=== PATIENT | male | born 1970 | race American Indian/Alaskan Native ===

== ENCOUNTER 2017-07-26 01:13 | Emergency (ER) | payer BC ==
[2017-07-26] MEDS ORDERED: MORPHINE IM ONE (01:35)
[2017-07-26] MEDS ORDERED: BOOSTRIX IM ONE (01:35)
[2017-07-26] MEDS ORDERED: MORPHINE ONE (01:38)
[2017-07-26] MEDS ORDERED: ZOFRAN ODT PO ONE (02:11)
[2017-07-26] MEDS ORDERED: NORCO 10/325 PO ONE (02:11)
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
[2017-07-26] MEDS ORDERED: MOTRIN PO ONE (03:05)
[2017-07-26] MEDS ORDERED: THERMAZENE 50 GRAM TP ONE (03:11)
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
[2017-07-26 07:06] VITALS: BP 140/72
== END 2017-07-26 04:35 | disposition home or self-care (01) ==
LOC: ED 01:13
DX: T23.202A Burn of second degree of left hand, unspecified site, initial encounter (principal); F17.200 Nicotine dependence, unspecified, uncomplicated; X08.8XXA Exposure to other specified smoke, fire and flames, initial encounter; Y93.89 Activity, other specified; Y92.89 Other specified places as the place of occurrence of the external cause; Y99.8 Other external cause status
CPT/HCPCS: 16020; 73120; 90471; 90715; 96372; 99283; J2270; Q0162

== ENCOUNTER 2017-09-01 19:12 | Emergency (ER) | payer BC ==
[2017-09-01 19:35] VITALS: BP 137/86
[2017-09-01 22:29] LABS: Bacteria,Urine 1+ /HPF (Negative); Bilirubin,Urine NEG (Negative); Blood,Urine NEG (Negative); Color,Urine Yellow (Yellow); Nitrite,Urine NEG (Negative); Protein,Urine <15 mg/dL mg/dL (Negative); RBC,Urine < 1.0 /HPF (0.0-6.0); Urobilinogen,Urine < 2.0 mg/dL (<2.0); WBC,Urine < 1.0 /HPF (0.0-6.0)
[2017-09-02] MEDS ORDERED: ROCEPHIN IM ONE (00:59)
[2017-09-02] MEDS ORDERED: XYLOCAINE 1% MPF 5 mL INFILTRATI ONE (00:59)
[2017-09-02] MEDS ORDERED: ZITHROMAX PO ONE (00:59)
--- NOTE | 2017-09-02 01:03 | Emergency Department Report ---
ED Male HPI - General Chief complaint: Urogenital-Male Stated complaint: PAINFUL URINATION/STD Time Seen by Provider: 09/02/17 00:54 Source: patient Mode of arrival: Ambulatory Limitations: No Limitations - History of Present Illness Initial comments: This is a 47-year-old male nontoxic, well nourished in appearance, no acute signs of distress presents to the ED with c/o of pale discharge 1 week. Patient that he had unprotected sex 2 weeks ago which his girlfriend called and stated she is diagnosed with an STD exposure of chlamydia. Patient stated that he Then patient developed the symptoms. Patient denies any testicular pain, testicular swelling, dysuria, polyuria, hematuria, back pain, dental pain, chest pain, shortness of breath, headache, stiff neck, nausea or vomiting. Patient denies any drug allergies or significant past medical history. MD Complaint: penile discharge -: week(s) (1) Location: penis Radiation: none Severity scale (0 -10): 0 Improves with: none Worsens with: none discharge. denies: swelling, mass, rash, urinary retention, blood in urine, dysuria, fever, nausea/vomiting, incontinence - Related Data Sexually active: Yes Previous Rx's Medication Instructions Recorded Last Taken Type Promethazine [Phenergan] 25 mg PO Q6H PRN #10 tablet 01/22/14 Unknown Rx oxyCODONE /ACETAMINOPHEN [Percocet 1 tab PO Q6HR PRN #16 tablet 01/22/14 Unknown Rx 5/325] Ibuprofen [Motrin] 600 mg PO Q8H PRN #50 tablet 05/07/14 Unknown Rx Sulfamethoxazole/Trimethoprim 1 each PO BID #20 tablet 05/07/14 Unknown Rx [Bactrim Ds] Acetaminophen/Codeine [Tylenol 1 tab PO Q6H PRN #18 tab 07/26/17 Unknown Rx /Codeine # 3 tab] Cephalexin [Keflex] 500 mg PO Q12HR #14 cap 07/26/17 Unknown Rx Ibuprofen [Motrin] 800 mg PO Q8HR PRN #30 tablet 07/26/17 Unknown Rx Silver Sulfadiazine [Silvadene] 400 gm TP BID #1 cream..g. 07/26/17 Unknown Rx Allergies Allergy/AdvReac Type Severity Reaction Status Date / Time No Known Allergies Allergy Verified 02/07/18 19:33 ED Review of Systems ROS: Stated complaint: PAINFUL URINATION/STD Other details as noted in HPI Constitutional: denies: chills, fever Eyes: denies: eye pain, eye discharge, vision change ENT: denies: ear pain, throat pain Respiratory: denies: cough, shortness of breath, wheezing Cardiovascular: denies: chest pain, palpitations Endocrine: no symptoms reported Gastrointestinal: denies: abdominal pain, nausea, diarrhea Genitourinary: discharge. denies: urgency, dysuria Musculoskeletal: denies: back pain, joint swelling, arthralgia Skin: denies: rash, lesions Neurological: denies: headache, weakness, paresthesias Psychiatric: denies: anxiety, depression Hematological/Lymphatic: denies: easy bleeding, easy bruising ED Past Medical Hx - Past Medical History Previous Medical History?: No Additional medical history: GI bleed - Surgical History Hx Cholecystectomy: Yes - Social History Smoking Status: Never Smoker Substance Use Type: Alcohol, Marijuana - Medications Home Medications: Home Medications Medication Instructions Recorded Confirmed Last Taken Type Promethazine [Phenergan] 25 mg PO Q6H PRN #10 tablet 01/22/14 Unknown Rx oxyCODONE /ACETAMINOPHEN [Percocet 1 tab PO Q6HR PRN #16 tablet 01/22/14 Unknown Rx 5/325] Ibuprofen [Motrin] 600 mg PO Q8H PRN #50 tablet 05/07/14 Unknown Rx Sulfamethoxazole/Trimethoprim 1 each PO BID #20 tablet 05/07/14 Unknown Rx [Bactrim Ds] Acetaminophen/Codeine [Tylenol 1 tab PO Q6H PRN #18 tab 07/26/17 Unknown Rx /Codeine # 3 tab] Cephalexin [Keflex] 500 mg PO Q12HR #14 cap 07/26/17 Unknown Rx Ibuprofen [Motrin] 800 mg PO Q8HR PRN #30 tablet 07/26/17 Unknown Rx Silver Sulfadiazine [Silvadene] 400 gm TP BID #1 cream..g. 07/26/17 Unknown Rx ED Physical Exam - General Limitations: No Limitations General appearance: alert, in no apparent distress - Head Head exam: Present: atraumatic, normocephalic - Eye Eye exam: Present: normal appearance - ENT ENT exam: Present: mucous membranes moist - Neck Neck exam: Present: normal inspection - Respiratory Respiratory exam: Present: normal lung sounds bilaterally. Absent: respiratory distress - Cardiovascular Cardiovascular Exam: Present: regular rate, normal rhythm. Absent: systolic murmur, diastolic murmur, rubs, gallop - GI/Abdominal GI/Abdominal exam: Present: soft, normal bowel sounds. Absent: distended, tenderness, guarding, rebound, rigid, diminished bowel sounds - Rectal Rectal exam: Present: deferred - exam: Present: normal inspection. Absent: testicular tenderness, urethral discharge, scrotal swelling, vertical testicular lie, circumcision External exam: Present: normal external exam. Absent: erythema, swelling, lesions, lacerations, ecchymosis, bleeding - Extremities Exam Extremities exam: Present: normal inspection, full ROM - Back Exam Back exam: Present: normal inspection, full ROM. Absent: tenderness, CVA tenderness (R), CVA tenderness (L), muscle spasm, paraspinal tenderness, vertebral tenderness, rash noted - Neurological Exam Neurological exam: Present: alert, oriented X3 - Psychiatric Psychiatric exam: Present: normal affect, normal mood - Skin Skin exam: Present: warm, dry, intact, normal color. Absent: rash ED Course Vital Signs 09/01/17 19:33 Temperature 98.1 F Pulse Rate 56 L Respiratory 16 Rate Blood Pressure 137/86 O2 Sat by Pulse 98 Oximetry - Reevaluation(s) Reevaluation #1: 09/02/17 01:01 Patient is speaking in full sentences with no signs of distress noted. ED Medical Decision Making - Medical Decision Making this is a 47-year-old male that presented possible STD exposures. Patient is stable and was examined by me. UA obtained and normal. Patient received Rocephin and azithromycin. Gonorrhea/chlamydia pending. Patient was instructed to return in 3 days to obtain results of gonorrhea or chlamydia. Patient was also instructed Follow-up with a primary care doctor in 3-5 days or if symptoms worsen and continue return to emergency room as soon as possible. At time of discharge, the patient does not seem toxic or ill in appearance. No acute signs of distress noted. Patient agrees to discharge treatment plan of care. No further questions noted by the patient. This chart is dictated with using [employer] Critical care attestation.: If time is entered above; I have spent that time in minutes in the direct care of this critically ill patient, excluding procedure time. ED Disposition Clinical Impression: Possible exposure to STD Disposition: DC-01 TO HOME OR SELFCARE Is pt being admited?: No Does the pt Need Aspirin: No Condition: Stable Instructions: Safe Sex (ED) Additional Instructions: Follow-up with a primary care doctor in 3-5 days or if symptoms worsen and continue return to emergency room as soon as possible. Return in 3 days for results of gonorrhea and chlamydia. Referrals: PRIMARY CAREMD [Primary Care Provider] - 3-5 Days SOLANGE CARRASQUILLO MD [Staff Physician] - 3-5 Days [facility] [Outside] - 3-5 Days [facility] [Outside] - 3-5 Days Forms: Work/School Release Form(ED)
== END 2017-09-02 01:40 | disposition home or self-care (01) ==
LOC: ED 19:12
DX: R36.9 Urethral discharge, unspecified (principal); F12.10 Cannabis abuse, uncomplicated
CPT/HCPCS: 81001; 87591; 96372; 99283; J0696

== ENCOUNTER 2019-02-08 21:31 | Emergency (ER) | payer SELFPAY ==
[2019-02-08] MEDS ORDERED: NACL 0.9% IR ONE (21:40)
[2019-02-08] MEDS ORDERED: BOOSTRIX IM ONE (21:40)
[2019-02-08] MEDS ORDERED: IBUPROFEN PO ONE (21:40)
--- NOTE | 2019-02-08 21:40 | Event Note ---
ED Screening Note ED Screening Note: lac r wrist did it at work on metal bleeding controlled n/v intact needs tdap This initial assessment/diagnostic orders/clinical plan/treatment(s) is/are subject to change based on patients health status, clinical progression and re- assessment by fellow clinical providers in the ED. Further treatment and workup at subsequent clinical providers discretion. Patient/guardian urged not to elope from the ED as their condition may be serious if not clinically assessed and managed. Initial orders include: lac care tdap
[2019-02-08 21:43] VITALS: BP 145/88
[2019-02-09] MEDS ORDERED: IBUPROFEN ONE
[2019-02-09] MEDS ORDERED: BOOSTRIX IM ONE (00:01)
--- NOTE | 2019-02-09 01:12 | Emergency Department Report ---
ED Laceration HPI - HPI Chief Complaint: Wound/Laceration Stated Complaint: RT FOREARM LACERATION Time Seen by Provider: 02/08/19 21:39 Occurred When: Yesterday Location: Upper Extremity (right wrist) Severity: mild Tetanus Status: Not up to Date Laceration Symptoms: Yes Pain, No Foreign Body Sensation, No Numbness, No Weakness Other History: This is a 48-year-old [place] male who presents with a laceration to right anterior wrist. Patient states he was there were and accidentally cut his right wrist with the metal frame while at work 4-5 hours prior to arrival. Patient can't remember his last tetanus vaccine. Past medical history GI bleed. Denies numbness or tingling, weakness, swelling, or brusing around area. ED Review of Systems ROS: Stated complaint: RT FOREARM LACERATION Other details as noted in HPI Constitutional: denies: chills, fever Respiratory: denies: cough, shortness of breath, wheezing Cardiovascular: denies: chest pain, palpitations Gastrointestinal: denies: abdominal pain, nausea, diarrhea Skin: lesions (laceration right wrist). denies: rash Neurological: denies: headache, weakness, paresthesias Psychiatric: denies: anxiety, depression ED Past Medical Hx - Past Medical History Previous Medical History?: Yes Additional medical history: GI bleed - Surgical History Past Surgical History?: Yes Hx Cholecystectomy: Yes - Social History Smoking Status: Never Smoker Substance Use Type: None - Medications Home Medications: Home Medications Medication Instructions Recorded Confirmed Last Taken Type Promethazine [Phenergan] 25 mg PO Q6H PRN #10 tablet 01/22/14 Unknown Rx oxyCODONE /ACETAMINOPHEN [Percocet 1 tab PO Q6HR PRN #16 tablet 01/22/14 Unknown Rx 5/325] Ibuprofen [Motrin] 600 mg PO Q8H PRN #50 tablet 05/07/14 Unknown Rx Sulfamethoxazole/Trimethoprim 1 each PO BID #20 tablet 05/07/14 Unknown Rx [Bactrim Ds] Acetaminophen/Codeine [Tylenol 1 tab PO Q6H PRN #18 tab 07/26/17 Unknown Rx /Codeine # 3 tab] Ibuprofen [Motrin] 800 mg PO Q8HR PRN #30 tablet 07/26/17 Unknown Rx Silver Sulfadiazine [Silvadene] 400 gm TP BID #1 cream..g. 07/26/17 Unknown Rx cephALEXin [Keflex] 500 mg PO Q12HR #14 cap 07/26/17 Unknown Rx cephALEXin [Keflex] 500 mg PO Q12HR #14 cap 02/09/19 Unknown Rx Laceration Physical Exam - Exam General: Vital signs noted. No distress. Alert and acting appropriately. Wound Length (cm): 3 Laceration Location: Upper Extremity Full Body Front + Back: 1 - 3 cm linear laceration into the epidermis, neurologically intact, no drainage, no facial tendons or ligaments, or surrounding cellulitis Laceration Exam: Yes Normal Distal CMS, No Foreign Body, No Exposed Tendon, Vessel, or Nerve, No Tendon Injury ED Course Vital Signs 02/08/19 21:39 Temperature 98.3 F Pulse Rate 71 Respiratory 16 Rate Blood Pressure 145/88 O2 Sat by Pulse 99 Oximetry - Laceration /Wound Repair Right Anterior Distal Wrist Wound Location: upper extremity Wound Length (cm): 3 Wound's Depth, Shape: superficial Wound Explored: clean Irrigated w/ Saline (ccs): 20 Betadine Prep?: Yes Anesthesia: 1% Lidocaine Volume Anesthetic (ccs): 2 Wound Repaired With: sutures Suture Size/Type: 4:0 Number of Sutures: 4 Layer Closure?: No Sterile Dressing Applied?: Yes ED Medical Decision Making - Medical Decision Making Patient examined by me. Vital stable. Patient is non-toxic appearing and stable. Patient given booster vaccine and ibuprofen while in the ER. Laceration repair performed, reviewed procedure note. Discharged home for outpatient treatment with Keflex. Discussed ER care plan with patient. Patient agreed with plan. F/U with PCP. Critical care attestation.: If time is entered above; I have spent that time in minutes in the direct care of this critically ill patient, excluding procedure time. ED Disposition Clinical Impression: Laceration of wrist Qualifiers: Encounter type: initial encounter Laterality: right Qualified Code(s): S61.511A - Laceration without foreign body of right wrist, initial encounter Disposition: TO HOME OR SELFCARE Is pt being admited?: No Does the pt Need Aspirin: No Condition: Stable Instructions: Suture Care (ED), Laceration (ED) Additional Instructions: Take antibiotics as prescribed for the full course. Keep wound dry and clean for 48 hours. Avoid putting to much tension on wound site. Prop arm up on pillows to decrease swelling. Follow up with Primary Care Provider in 2-3 days. Have sutures removed in 7-10 days by primary care provider or in ER. Return to ER if red, swollen, foul discharge, or fever. Prescriptions: cephALEXin [Keflex] 500 mg PO Q12HR #14 cap Referrals: EMILE CHIN MD [Primary Care Provider] - 3-5 Days RADHA BARNES MD [Staff Physician] - 3-5 Days [facility] [Provider Group] - 3-5 Days Forms: Work/School Release Form(ED) Time of Disposition: 02:17
== END 2019-02-09 02:20 | disposition home or self-care (01) ==
LOC: ED 21:31
DX: S61.511A Laceration without foreign body of right wrist, initial encounter (principal); Z90.49 Acquired absence of other specified parts of digestive tract; Z79.1 Long term (current) use of non-steroidal anti-inflammatories (NSAID); Z79.899 Other long term (current) drug therapy; W26.8XXA Contact with other sharp object(s), not elsewhere classified, initial encounter; Y93.89 Activity, other specified; Y92.69 Other specified industrial and construction area as the place of occurrence of the external cause; Y99.8 Other external cause status
CPT/HCPCS: 90471; 90715

== ENCOUNTER 2019-03-01 14:17 | Emergency (ER) | payer SELFPAY ==
[2019-03-01 15:07] VITALS: BP 129/69
--- NOTE | 2019-03-01 15:07 | Emergency Department Report ---
Blank Doc - Documentation Documentation: this is a 48-year-old male that presents with right eye pain with foreign body sensation. This initial assessment/diagnostic orders/clinical plan/treatment(s) is/are subject to change based on patient's health status, clinical progression and re- assessment by fellow clinical providers in the ED. Further treatment and workup at subsequent clinical providers discretion. Patient/guardians urged not to elope from the ED as their condition may be serious if not clinically assessed and managed. Initial orders include: 1- Patient sent to [facility] for further evaluation and treatment
[2019-03-01] MEDS ORDERED: ERYTHROMYCIN OPHTH OINT OU ONE (17:22)
[2019-03-01] MEDS ORDERED: TETRACAINE 0.5% OU ONE (17:22)
[2019-03-01] MEDS ORDERED: FUL-GLO OP ONE (17:22)
--- NOTE | 2019-03-01 17:29 | Emergency Department Report ---
Eye Injury/Foreign Body - HPI Duration: 2 Days Eye Location: Right Severity: Mild Tetanus Status: Up to Date Eye Symptoms: Eye Pain: No, Blurred Vision: No, Eye Redness: Yes, Grinding/Hammering Metal: No, Used Eye Protection: No, Contact Lens Use: Yes, Recalls Injury: No, Photophobia: No Other History: 48 yo with r eye pain p rubbing contact last pm. no fever. no systemic symptoms. ED Review of Systems ROS: Stated complaint: (R) EYE INFECTION Other details as noted in HPI Comment: All other systems reviewed and negative ED Past Medical Hx - Past Medical History Previous Medical History?: No Additional medical history: GI bleed - Surgical History Past Surgical History?: Yes Hx Cholecystectomy: Yes - Social History Smoking Status: Current Every Day Smoker Substance Use Type: Alcohol - Medications Home Medications: Home Medications Medication Instructions Recorded Confirmed Last Taken Type Tobramycin/Dexamethasone [Tobradex 1 - 2 drop OD Q4HR #1 each 03/01/19 Unknown Rx Eye Drops 0.3/0.1%] Eye Injury Exam - Exam General: Vital signs noted. No distress. Alert and acting appropriately. globe intact eom intact perrl vision unchanged on stain pos iritis s1s2 lungs cta ab snt ED Course Vital Signs 03/01/19 15:06 Temperature 98.5 F Pulse Rate 61 Respiratory 18 Rate Blood Pressure 129/69 O2 Sat by Pulse 100 Oximetry ED Medical Decision Making - Medical Decision Making no fb on exam no abrasion or ulceration inc uptake stain consistent w iritis no photophobia no pain no discharge sensation of fb no trauma no welding dc home with dc plan of care and optha follow up Vital Signs 03/01/19 15:06 Temperature 98.5 F Pulse Rate 61 Respiratory 18 Rate Blood Pressure 129/69 O2 Sat by Pulse 100 Oximetry - Differential Diagnosis abrasion/inflamation fb of eye Critical care attestation.: If time is entered above; I have spent that time in minutes in the direct care of this critically ill patient, excluding procedure time. ED Disposition Clinical Impression: Iritis Disposition: DC-01 TO HOME OR SELFCARE Is pt being admited?: No Does the pt Need Aspirin: No Condition: Stable Instructions: Iritis (ED) Additional Instructions: med as ordered today if persists follow up with eye MD referral below motrin or tylenol for pain Referrals: CHAU WOODS MD [Staff Physician] - 3-5 Days Time of Disposition: 18:08
== END 2019-03-01 18:19 | disposition home or self-care (01) ==
LOC: ED 14:17
DX: H20.9 Unspecified iridocyclitis (principal); F17.200 Nicotine dependence, unspecified, uncomplicated

== ENCOUNTER 2019-08-18 21:44 | Emergency (ER) | payer SELFPAY ==
[2019-08-18 21:52] VITALS: BP 125/70
[2019-08-19 00:45] LABS: Bilirubin,Urine NEG (Negative); Blood,Urine NEG (Negative); Color,Urine Yellow (Yellow); Mucus,Urine 2+ /HPF; Protein,Urine <15 mg/dL mg/dL (Negative)
--- NOTE | 2019-08-19 01:05 | Emergency Department Report ---
Chief Complaint: Urogenital-Male Stated Complaint: PAINFUL URINATION Time Seen by Provider: 08/19/19 00:40 - HPI History of Present Illness: The patient is a 49-year-old gentleman. The patient is not known to this provider previously. He presents to the ER with complaints of hot urination, questionable dysuria, no recent sexual partners, no testicular pain, left-sided medial bicep pain, after heavy working out, decreased appetite, and malaise. He has no fever, no headache, no chest pain, no abdominal pain, no shortness of breath. Symptoms present for the past few days. Denies IV drug use. Head is normocephalic/atraumatic. Neck is supple with no meningeal signs. Speaking in full sentences. No stridor or dysphonia. External ear exam unremarkable. S1, S2, regular rate and rhythm. Belly soft and benign, without rebound, guarding or peritoneal signs. 2+ pulses noted in the bilateral upper and lower extremities. There is no long bony tenderness. The pelvis is stable. The muscular compartments are soft. There is no palpable cord. The extraocular movements are intact bilaterally. There is no facial droop. The tongue is midline. Phonating in normal sentences. Hearing is intact grossly. Walking with a steady gait. 5/5 strength with 4 extremities. Sensation intact to light touch in 4 extremities. Appropriate thought content. GCS 15. Vital Signs 08/18/19 21:49 Temperature 98.6 F Pulse Rate 87 Respiratory 18 Rate Blood Pressure 125/70 O2 Sat by Pulse 97 Oximetry Lab Results 08/18/19 Range/Units Unknown Urine Color Yellow (Yellow) Urine Turbidity Clear (Clear) Urine pH 5.0 (5.0-7.0) Ur Specific [place] 1.033 H (1.003-1.030) Urine Protein <15 mg/dl (Negative) mg/dL Urine Glucose (UA) Neg (Negative) mg/dL Urine Ketones Tr (Negative) mg/dL Urine Blood Neg (Negative) Urine Nitrite Neg (Negative) Urine Bilirubin Neg (Negative) Urine Urobilinogen 4.0 (<2.0) mg/dL Ur Leukocyte Esterase Neg (Negative) Urine WBC (Auto) 1.0 (0.0-6.0) /HPF Urine RBC (Auto) 1.0 (0.0-6.0) /HPF U Epithel Cells (Auto) < 1.0 (0-13.0) /HPF Urine Mucus 2+ /HPF This patient has an unremarkable physical examination and a benign complaint. He has been in this department for over 3 hours without clinical decompensation. He is resting currently on his stretcher and in no acute distress. This patient does not have an emergent medical condition at this time. He will be referred to outpatient primary care, and the local health department. - Exam Vital Signs: Vital Signs 08/18/19 21:49 Temperature 98.6 F Pulse Rate 87 Respiratory 18 Rate Blood Pressure 125/70 O2 Sat by Pulse 97 Oximetry MSE screening note: Focused history and physical exam performed. Due to findings the following was ordered: ED Disposition for MSE Condition: Stable
[2019-08-19] MEDS ORDERED: ACETAMINOPHEN 325 MG TAB PO ONE (01:22)
== END 2019-08-19 01:28 | disposition home or self-care (01) ==
LOC: ED 21:44
DX: R30.0 Dysuria (principal)
CPT/HCPCS: 81001; 99283

== ENCOUNTER 2020-04-11 21:10 | Emergency (ER) | payer SELFPAY ==
[2020-04-11 21:33] VITALS: BP 136/87
[2020-04-12] MEDS ORDERED: traMADol 50 MG TAB PO ONE (00:10)
--- NOTE | 2020-04-12 00:41 | Emergency Department Report ---
ED ENT HPI - General Chief complaint: Dental/Oral Stated complaint: TOOTHACHE/FACIAL SWELLING Time Seen by Provider: 04/11/20 23:49 Source: patient Mode of arrival: Ambulatory Limitations: No Limitations - History of Present Illness Initial comments: Patient is a 49-year-old male with a history of chronic dental caries who presents with dental pain x3 days. There is no fever no chills no nausea vomiting no throat or ear pain. Patient is tolerating p.o. intake. Symptoms are described as 5/10 aching intermittent symptoms are exacerbated by hot and c old stimuli and p.o. intake. Symptoms are relieved by nothing tried. Patient states he has a dental appointment in May requesting referral to a new dentist. MD complaint: tooth pain - Related Data Previous Rx's Medication Instructions Recorded Last Taken Type Tobramycin/Dexamethasone [Tobradex 1 - 2 drop OD Q4HR #1 each 03/01/19 Unknown Rx Eye Drops 0.3/0.1%] Amoxicillin [Trimox CAP] 500 mg PO Q8H 7 Days #21 capsule 04/12/20 Unknown Rx Chlorhexidine Mouthwash [Peridex] 15 ml MM BID #1 bottle 04/12/20 Unknown Rx traMADoL [Ultram] 50 mg PO Q6HR PRN #12 tablet 04/12/20 Unknown Rx Allergies Allergy/AdvReac Type Severity Reaction Status Date / Time No Known Allergies Allergy Verified 09/01/17 19:33 ED Dental HPI - General Chief complaint: Dental/Oral Stated complaint: TOOTHACHE/FACIAL SWELLING Time Seen by Provider: 04/11/20 23:49 Source: patient Mode of arrival: Ambulatory Limitations: No Limitations - Related Data Previous Rx's Medication Instructions Recorded Last Taken Type Tobramycin/Dexamethasone [Tobradex 1 - 2 drop OD Q4HR #1 each 03/01/19 Unknown Rx Eye Drops 0.3/0.1%] Amoxicillin [Trimox CAP] 500 mg PO Q8H 7 Days #21 capsule 04/12/20 Unknown Rx Chlorhexidine Mouthwash [Peridex] 15 ml MM BID #1 bottle 04/12/20 Unknown Rx traMADoL [Ultram] 50 mg PO Q6HR PRN #12 tablet 04/12/20 Unknown Rx Allergies Allergy/AdvReac Type Severity Reaction Status Date / Time No Known Allergies Allergy Verified 09/01/17 19:33 ED Review of Systems ROS: Stated complaint: TOOTHACHE/FACIAL SWELLING Other details as noted in HPI Constitutional: denies: chills, fever Eyes: denies: eye pain, eye discharge, vision change ENT: dental pain. denies: ear pain, throat pain, congestion Respiratory: denies: cough, shortness of breath, wheezing Cardiovascular: denies: chest pain, palpitations Endocrine: no symptoms reported Gastrointestinal: denies: abdominal pain, nausea, diarrhea Genitourinary: denies: urgency, dysuria Musculoskeletal: denies: back pain, joint swelling, arthralgia Skin: as per HPI Neurological: denies: headache, weakness, paresthesias Psychiatric: denies: anxiety, depression Hematological/Lymphatic: denies: easy bleeding, easy bruising ED Past Medical Hx - Past Medical History Previous Medical History?: Yes Additional medical history: GI bleed - Surgical History Past Surgical History?: Yes Hx Cholecystectomy: Yes - Social History Smoking Status: Never Smoker Substance Use Type: None - Medications Home Medications: Home Medications Medication Instructions Recorded Confirmed Last Taken Type Tobramycin/Dexamethasone [Tobradex 1 - 2 drop OD Q4HR #1 each 03/01/19 Unknown Rx Eye Drops 0.3/0.1%] Amoxicillin [Trimox CAP] 500 mg PO Q8H 7 Days #21 capsule 04/12/20 Unknown Rx Chlorhexidine Mouthwash [Peridex] 15 ml MM BID #1 bottle 04/12/20 Unknown Rx traMADoL [Ultram] 50 mg PO Q6HR PRN #12 tablet 04/12/20 Unknown Rx ED Physical Exam - General Limitations: No Limitations General appearance: alert, in no apparent distress - Head Head exam: Present: atraumatic, normocephalic - Eye Eye exam: Present: normal appearance, PERRL, EOMI Pupils: Present: normal accommodation - ENT ENT exam: Present: mucous membranes moist, TM's normal bilaterally, normal external ear exam - Expanded ENT Exam Expanded Teeth exam: Present: dental caries (15 mild erythema no focal abscess no facial swelling ), dental tenderness # Throat exam: Positive: other (uvual midline no stridor ). Negative: tonsillar erythema, tonsillomegaly, tonsillar exudate - Neck Neck exam: Present: normal inspection, full ROM. Absent: tenderness, lymphadenopathy - Respiratory Respiratory exam: Present: normal lung sounds bilaterally. Absent: respiratory distress, wheezes, stridor - Cardiovascular Cardiovascular Exam: Present: regular rate, normal rhythm. Absent: systolic murmur, diastolic murmur, rubs, gallop - GI/Abdominal GI/Abdominal exam: Present: soft, normal bowel sounds - Rectal Rectal exam: Present: deferred - Extremities Exam Extremities exam: Present: normal inspection - Back Exam Back exam: Present: normal inspection, full ROM. Absent: tenderness - Neurological Exam Neurological exam: Present: alert, oriented X3 - Psychiatric Psychiatric exam: Present: normal affect, normal mood - Skin Skin exam: Present: warm, dry, intact, normal color. Absent: rash ED Course Vital Signs 04/11/20 21:30 Temperature 98.5 F Pulse Rate 72 Respiratory 14 Rate Blood Pressure 136/87 O2 Sat by Pulse 98 Oximetry ED Medical Decision Making - Medical Decision Making this is infected dental carries, plan: amoxicillin, ultram, peridex, follow up with dentist , pt given community referral. pt dc'd to home in stable condition at this time. Critical care attestation.: If time is entered above; I have spent that time in minutes in the direct care of this critically ill patient, excluding procedure time. ED Disposition Clinical Impression: Infected dental carries Disposition: DC-01 TO HOME OR SELFCARE Is pt being admited?: No Does the pt Need Aspirin: No Condition: Stable Instructions: Dental Caries (ED) Additional Instructions: follow up [facility] dentist as directed, take medications as prescribed. Prescriptions: Chlorhexidine Mouthwash [Peridex] 15 ml MM BID #1 bottle Amoxicillin [Trimox CAP] 500 mg PO Q8H 7 Days #21 capsule traMADoL [Ultram] 50 mg PO Q6HR PRN #12 tablet PRN Reason: Pain Referrals: [facility] [Provider Group] - 3-5 Days Forms: Work/School Release Form(ED)
== END 2020-04-12 01:00 | disposition home or self-care (01) ==
LOC: ED 21:10
DX: K02.9 Dental caries, unspecified (principal); Z79.899 Other long term (current) drug therapy; Z90.49 Acquired absence of other specified parts of digestive tract
CPT/HCPCS: 99282